=== PATIENT | male | born 1965 | race Caucasian/White ===

== ENCOUNTER 2018-11-23 16:25 | Emergency (ER) | payer OTHER ==
[~2018-11-23] VITALS: Ht 190.5 cm; Wt 90.7 kg
--- NOTE | 2018-11-23 16:30 | NUR ---
BIB SELF FOR R SIDED HEADACHE NASAL CONGESTION X 10 DAYS. WAS GIVEN ZITHROMAX AND FLONASE FOR SINUS INFECTION. NO RELIEF. TO ER BED 9, HOOKED TO MONITOR, VSS, AWAITING MD MONAE
--- NOTE | 2018-11-23 17:30 | NUR ---
WHEELED OUT VIA [facility] FOR CT SCAN.
[2018-11-23] MEDS ORDERED: PIPERACILLIN /TAZOBACTAM 3.375 G in IV D5W 50 ML IV ONE (18:00)
[2018-11-23] MEDS ORDERED: PIPERACILLIN /TAZOBACTAM 3.375 G VIAL IV ONE (18:14)
--- NOTE | 2018-11-23 18:15 | NUR ---
IV PERIPHERAL LINE STARTED AT RAC 20G.
--- NOTE | 2018-11-23 19:10 | NUR ---
IV removed. Catheter intact and site benign. Pressure and 4x4 applied to site. No bleeding noted.Patient discharged to home in stable condition. Written and verbal after care instructions given. Patient verbalizes understanding of instruction.
[2018-11-23 19:15] VITALS: BP 122/68
== END 2018-11-23 19:10 | disposition home or self-care (01) ==
LOC: ER 16:28
DX: H70.91 Unspecified mastoiditis, right ear (principal); F17.200 Nicotine dependence, unspecified, uncomplicated; R51 Headache
CPT/HCPCS: 70450; 70486; 96365; 99284; 99406; J2543; J7060

== ENCOUNTER 2022-03-03 22:49 | Emergency (ER) | payer OTHER ==
[~2022-03-03] VITALS: Ht 193 cm; Wt 95.3 kg
[2022-03-03] MEDS ORDERED: FLUORESCEIN SODIUM OPHTH 1 EA STRIP ONE (23:22)
[2022-03-03] MEDS ORDERED: FLUORESCEIN SODIUM OPHTH 1 EA STRIP OP ONE (23:30)
[2022-03-03] MEDS ORDERED: TETRAcaine 5 ML BOTTLE EACHEYE ONE (23:30)
[2022-03-03 23:34] VITALS: BP 140/80
--- NOTE | 2022-03-03 23:34 | NUR ---
Patient discharged to home in stable condition. Written and verbal after care instructions given. Patient verbalizes understanding of instruction.
== END 2022-03-03 23:35 | disposition home or self-care (01) ==
LOC: ER 23:07
DX: S05.01XA Injury of conjunctiva and corneal abrasion without foreign body, right eye, initial encounter (principal); X58.XXXA Exposure to other specified factors, initial encounter; Y93.89 Activity, other specified; Y92.89 Other specified places as the place of occurrence of the external cause; Y99.8 Other external cause status